=== PATIENT | female | born 2000 | race African-American/Black ===

== ENCOUNTER 2020-06-07 00:47 | Emergency (ER) | payer OTHER, SELFPAY ==
[2020-06-07 00:53] VITALS: BP 150/103; PULSE 119; RESP 20; TEMP 36.2; O2SAT 100
--- NOTE | 2020-06-07 01:20 | ECG_ITS ---
Measurements Intervals [place] Rate: 119 P: 68 SD: 181 QRS: 33 QRSD: 89 T: 44 QT: 423 QTc: 596 Interpretive Statements SINUS TACHYCARDIA INCOMPLETE RIGHT BUNDLE BRANCH BLOCK NONSPECIFIC T-WAVE ABNORMALITY- INFERIOR LEADS ABNORMAL ECG Electronically Signed On 06-07-2020 6:55:30 CDT by Gregg Zeng D.O.
[2020-06-07 01:34] LABS: Basophils Percent Auto 0.5 % (0.2-1.2); Eosinophils Absolute Auto 0.1 K/mm3 (0-0.3); Eosinophils Percent Auto 0.6 % (0-4.4); Hematocrit 34.5 % (37.0-47.0); Hemoglobin 9.6 g/dL (12.0-15.0); Immature Granulocyte Absolute 0.02 K/mm3 (0.00-0.031); Immature Granulocyte Percent A 0.2 % (0-0.5); Lymphocytes Absolute Auto 2.34 K/mm3 (0.9-3.2); Lymphocytes Percent Auto 27.1 % (18.3-44.2); Mean Corpuscular HGB Conc 27.8 g/dl (32-36); Mean Corpuscular Volume 68.5 fl (80-100); Monocytes Absolute Auto 0.6 K/mm3 (0.1-0.6); Monocytes Percent Auto 6.6 % (2.6-8.5); Neutrophils Absolute Auto 5.6 K/mm3 (1.3-6.7); Platelet Count Result 305 k/mm3 (150-375); Red Blood Count 5.04 M/mm3 (4.2-5.4); Red Cell Distribution Width 17.8 % (11.5-14.5); White Blood Count 8.6 K/mm3 (4.5-10.0)
[2020-06-07 01:44] LABS: Lipase 48 U/L (23-300); Magnesium 1.8 mg/dL (1.6-2.3)
[2020-06-07 01:46] LABS: Alanine Aminotransferase 15 U/L (4-35); Albumin Level 4.4 g/dL (3.5-5.1); Alkaline Phosphatase 94 U/L (38-126); Anion Gap 9 mmol/L (8-16); Aspartate Amino Transferase 22 U/L (14-36); Bilirubin,Total < 0.1 mg/dL (0.2-1.3); Blood Urea Nitrogen 12 mg/dL (7-17); Calcium 9.1 mg/dL (8.4-10.2); Carbon Dioxide 28 mmol/L (22-30); Chloride 102 mmol/L (98-107); Estimated CRCL calculation 143 ml/min; Estimated Glomerular Filt Rate > 60; Glucose 108 mg/dL (65-105); Potassium 3.7 mmol/L (3.4-5.0); Sodium 139 mmol/L (137-145)
[2020-06-07 01:47] LABS: D Dimer 0.29 ug/mL (<0.48)
[2020-06-07 01:57] LABS: Troponin I < 0.012 ng/mL (0.000-0.034)
[2020-06-07 01:58] LABS: Hypochromasia 1+ (NORMAL); Microcytosis 2+ (NORMAL); Platelet Estimate Adequate (Adequate)
[2020-06-07] MEDS: SODIUM CHLORIDE 0.9% IV 1,000 ML 999 ML IV CONT (02:10)
[2020-06-07 02:11] VITALS: BP 138/98; PULSE 96; RESP 22; O2SAT 100
--- NOTE | 2020-06-07 03:10 | ED.GENADULT ---
HPI - General Adult General Chief complaint: Arrhythmia/Palpitations Stated complaint: heart palpitations Time Seen by Provider: 06/07/20 01:15 History of Present Illness HPI narrative: Patient is 19-year-old female presents the emergency department with chief complaint of palpitations. Patient reports this evening she started feeling as though her heart was racing multiple short of breath with this patient denies chest pain patient reports that she had no swelling in her legs. Patient states that upon arrival to the emergency department she feels as though she is getting good breath. Patient denies fever denies cough denies runny nose or sore throat. Patient denies prior history of connective tissue disorder denies history of clotting disorder does report that her father has had pulmonary embolisms before in the past. Related Data Home Medications Medication Instructions Recorded Confirmed trazodone 50 mg PO HS 01/15/19 venlafaxine [Effexor XR] 75 mg PO DAILY 01/15/19 Allergies Allergy/AdvReac Type Severity Reaction Status Date / Time No Known Allergies Allergy Verified 01/15/19 15:22 Review of Systems Review of Systems: Narrative: A 10 system review of systems was completed on the patient and is negative except for what is stated in the HPI. Nursing and ancillary documentation was reviewed. [facility] Past Medical History Medical History Tonsillectomy planned Social History Social History Smoking status: Never smoker Exam Narrative: Exam Narrative: GENERAL: Well-appearing, well-nourished, and in no acute distress. HEAD: Normocephalic, atraumatic. EYES: PERRLA and EOMI. ENT: Nares clear, no rhinorrhea or epistaxis. Mucous membranes moist. NECK: Supple. CHEST: Clear to auscultation. No respiratory distress. HEART: Regular rate and rhythm. No murmur heard. Normal peripheral pulses. ABDOMEN: Soft, nontender, nondistended, normal active bowel sounds. EXTREMITIES: Normal range of motion. No edema. SKIN: Warm, dry, no rash. NEURO: No focal deficits. Alert and oriented x3. PSYCH: Normal mood and affect. Course Course Emergency Course: EKG is a sinus tachycardia with a rate of [address] elevation or ST depression Patient received IV hydration in the emergency department. Initial D-dimer was negative and troponin was negative. Vital Signs Vital signs: Vital Signs Temperature 36.2 C L 06/07/20 00:53 Pulse Rate 119 H 06/07/20 00:53 Respiratory Rate 20 06/07/20 00:53 Blood Pressure 150/103 H 06/07/20 00:53 Pulse Oximetry 100 06/07/20 00:53 Temperature 36.2 C L 06/07/20 00:53 Pulse Rate 98 06/07/20 03:16 Respiratory Rate 20 06/07/20 03:16 Blood Pressure 145/88 H 06/07/20 03:16 Pulse Oximetry 99 06/07/20 03:16 Medical Decision Making Vital Signs Vital Signs: Vital Signs Temperature 36.2 C L 06/07/20 00:53 Pulse Rate 119 H 06/07/20 00:53 Respiratory Rate 20 06/07/20 00:53 Blood Pressure 150/103 H 06/07/20 00:53 Pulse Oximetry 100 06/07/20 00:53 Temperature 36.2 C L 06/07/20 00:53 Pulse Rate 98 06/07/20 03:16 Respiratory Rate 20 06/07/20 03:16 Blood Pressure 145/88 H 06/07/20 03:16 Pulse Oximetry 99 06/07/20 03:16 Lab Data Result diagrams: 06/07/20 01:27 06/07/20 01:27 Labs: Lab Results 06/07/20 06/07/20 06/07/20 Range/Units 01:27 01:27 01:27 WBC 8.6 (4.5-10.0) K/mm3 RBC 5.04 (4.2-5.4) M/mm3 Hgb 9.6 L (12.0-15.0) g/dL Hct 34.5 L (37.0-47.0) % MCV 68.5 L (80-100) fl MCH 19.0 L (26-34) pg MCHC 27.8 L (32-36) g/dl RDW 17.8 H (11.5-14.5) % Plt Count 305 (150-375) k/mm3 MPV TNP Immature Gran % (Auto) 0.2 (0-0.5) % Neut % (Auto) 65.0 (45.5-73.1) % Lymph % (Auto) 27.1 (18.3-44.2) % [place] % (Auto) 6.6 (2.6-8.
[2020-06-07 03:13] LABS: Add Urine Microscopic? NO; Appearance Urine Clear (Clear); Bacteria Urine Trace /hpf; Bilirubin Urine Negative (Negative); Blood Urine Negative (Negative); Color Urine Yellow (Yellow); Glucose Urine UA Negative (Negative); Ketones Urine Negative (Negative); Leukocyte Esterase Ur Negative LEU/UL (Negative); Mucus Urine Rare /lpf; Nitrate Urine Negative (Negative); Protein Urine Negative (Negative); RBC Urine 0-2 /hpf (0-2); Specific Grav Ur 1.012 (1.001-1.035); Squamous Epithelial Cell Urine Occasional /hpf (Few); Urobilinogen Urine Negative mg/dL (<2.0); WBC Urine 0-3 /hpf
[2020-06-07 03:16] VITALS: BP 145/88; PULSE 98; RESP 20; O2SAT 99
[2020-06-07 03:44] VITALS: BP 157/91; PULSE 102; RESP 20; O2SAT 99
== END 2020-06-07 03:59 | disposition home or self-care (01) ==
PROVIDERS: Emergency Provider Emergency Medicine
DX: R00.2 Palpitations (principal); R00.0 Tachycardia, unspecified; I45.10 Unspecified right bundle-branch block
CPT/HCPCS: 36415; 80053; 81003; 81025; 83690; 83735; 84484; 85025; 85055; 85380; 93005; 96360; 96361; 99284; J7030

== ENCOUNTER 2020-06-20 13:46 | Outpatient (CLI) | payer OTHER, SELFPAY ==
--- NOTE | 2020-06-20 14:08 | ECHO_ITS ---
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 Summary 1. Complete two-dimensional, color flow and Doppler transthoracic echocardiogram is performed. 2. Left ventricular chamber dimension is normal. 3. Left ventricular systolic function is normal, estimated at 60-65%. 4. The left ventricular diastolic function is normal. 5. E/e' 8 is minimally elevated. 6. There is trace mitral valve regurgitation. 7. No pulmonary hypertension, estimated pulmonary arterial systolic pressure is 18 mmHg. Left Ventricle E/e' 8 is minimally elevated. Left ventricular chamber dimension is normal. Left ventricular systolic function is normal, estimated at 60-65%. The left ventricular diastolic function is normal. Right Ventricle Right ventricular chamber dimension is normal. Right ventricular systolic function is normal. Left Atria Left atrial chamber dimension is normal. Right Atria Right atrial chamber dimension is normal. Aortic Valve The aortic valve is trileaflet. There is no aortic valve stenosis. There is no aortic valve regurgitation. Pulmonic Valve There is no pulmonic regurgitation. Mitral Valve There is no mitral valve stenosis. There is trace mitral valve regurgitation. Tricuspid Valve There is no tricuspid valve regurgitation. No pulmonary hypertension, estimated pulmonary arterial systolic pressure is 18 mmHg. Pericardium/Pleural There is no pericardial effusion. Inferior Vena Cava Normal inferior vena cava with >50% collapse upon inspiration consistent with normal right atrial pressure, 5 mmHg. Aorta The aortic root size at the sinus of Valsalva is normal. Left Ventricular Outflow Tract Name Value Normal LVOT 2D LVOT Diameter 2.3 cm LVOT Doppler LVOT Peak Gradient 5 mmHg LVOT Mean Gradient 3 mmHg LVOT VTI 19 cm LVOT VTI/AV VTI Ratio 1.0 LVOT Stroke Volume 75 ml LVOT CO 19.1 l/min LVOT CI 6.4 l/min/m2 Pulmonic Valve Name Value Normal PV Doppler PV Peak Gradient 4 mmHg Mitral Valve
[2020-06-20 14:34] LABS: Basophils Percent Auto 0.5 % (0.2-1.2); Eosinophils Percent Auto 0.5 % (0-4.4); Hematocrit 33.6 % (37.0-47.0); Hemoglobin 9.6 g/dL (12.0-15.0); Immature Granulocyte Absolute 0.02 K/mm3 (0.00-0.031); Immature Granulocyte Percent A 0.2 % (0-0.5); Immature Platelet Fraction Pct 14.3 % (0.9-11.2); Lymphocytes Percent Auto 22.2 % (18.3-44.2); Mean Corpuscular HGB Conc 28.6 g/dl (32-36); Mean Corpuscular Hemoglobin 19.2 pg (26-34); Mean Corpuscular Volume 67.1 fl (80-100); Monocytes Absolute Auto 0.6 K/mm3 (0.1-0.6); Monocytes Percent Auto 7.9 % (2.6-8.5); Neutrophils Absolute Auto 5.6 K/mm3 (1.3-6.7); Neutrophils Percent Auto 68.7 % (45.5-73.1); Platelet Count Result 272 k/mm3 (150-375); Red Blood Count 5.01 M/mm3 (4.2-5.4); Red Cell Distribution Width 17.7 % (11.5-14.5); White Blood Count 8.1 K/mm3 (4.5-10.0)
[2020-06-20 15:02] LABS: Anisocytosis 2+ (NORMAL); Hypochromasia 1+ (NORMAL); Platelet Estimate Adequate (Adequate)
[2020-06-20 17:44] LABS: Folic Acid 13.1 ng/mL (2.76->20)
--- NOTE | 2020-06-23 12:25 | WPDHOLTEREM ---
Holter/Event Monitor Holter/Event Monitor Date of procedure: 06/20/20 Procedure Type: 48 hour holter monitor Indications: Palpitations Conclusion: 1. 48 hour holter monitor on 06/20/20. 2. Underlying rhythm is sinus rhythm. HR range 67-182 bpm; average HR 101 bpm. 3. There are 5 premature supraventricular complexes and 1 supraventricular couplet. No supraventricular tachycardia. 4. There are 107 premature ventricular complexes and 3 ventricular couplets. No ventricular tachycardia. 5. No sinoatrial or atrioventricular blocks. No significant pauses greater than 2 seconds. 6. Patient reports symptoms of palpitations, chest pain which demonstrate sinus rhythm, HR range 90-128 bpm.
== END 2020-06-20 13:47 | disposition home or self-care (01) ==
PROVIDERS: PCP Internal Medicine; Visit Provider Nurse Practitioner
DX: D64.9 Anemia, unspecified (principal); I45.10 Unspecified right bundle-branch block; R00.2 Palpitations
CPT/HCPCS: 36415; 82607; 82728; 82746; 84443; 85025; 85055; 93225; 93226; 93306

== ENCOUNTER 2021-10-02 14:56 | Outpatient (CLI) | payer OTHER, SELFPAY ==
[2021-10-02 19:39] LABS: Alanine Aminotransferase 19 U/L (6-35); Alkaline Phosphatase 86 U/L (38-126); Anion Gap 8 mmol/L (8-16); Aspartate Amino Transferase 99 U/L (14-36); Bilirubin,Total 0.3 mg/dL (0.2-1.3); Blood Urea Nitrogen 17 mg/dL (7-17); Calcium 8.7 mg/dL (8.4-10.2); Carbon Dioxide 29 mmol/L (22-30); Chloride 103 mmol/L (98-107); Estimated Glomerular Filt Rate > 60; Glucose 87 mg/dL (65-110); Potassium 3.9 mmol/L (3.4-5.0); Sodium 140 mmol/L (137-145)
[2021-10-02 19:42] LABS: Basophils Percent Auto 0.4 % (0.2-1.2); Eosinophils Absolute Auto 0.1 K/mm3 (0-0.3); Eosinophils Percent Auto 1.2 % (0-4.4); Hematocrit 37.6 % (37.0-47.0); Hemoglobin 11.1 g/dL (12.0-15.0); Immature Granulocyte Absolute 0.01 K/mm3 (0.00-0.031); Immature Granulocyte Percent A 0.1 % (0-0.5); Immature Platelet Fraction Pct 18.3 % (0.9-11.2); Lymphocytes Absolute Auto 2.33 K/mm3 (0.9-3.2); Lymphocytes Percent Auto 32.2 % (18.3-44.2); Mean Corpuscular HGB Conc 29.5 g/dl (32-36); Mean Corpuscular Hemoglobin 22.8 pg (26-34); Mean Corpuscular Volume 77.4 fl (80-100); Monocytes Absolute Auto 0.4 K/mm3 (0.1-0.6); Monocytes Percent Auto 5.7 % (2.6-8.5); Neutrophils Absolute Auto 4.4 K/mm3 (1.3-6.7); Neutrophils Percent Auto 60.4 % (45.5-73.1); Platelet Count Result 189 k/mm3 (150-375); Red Blood Count 4.86 M/mm3 (4.2-5.4); Red Cell Distribution Width 16.8 % (11.5-14.5); White Blood Count 7.2 K/mm3 (4.5-10.0)
[2021-10-02 19:58] LABS: Iron 24 ug/dL (37-170)
[2021-10-02 20:13] LABS: Percent Iron Saturation 6 % (20-50)
== END 2021-10-02 14:57 | disposition home or self-care (01) ==
LOC: ANHGOSHLAB 14:57
PROVIDERS: PCP Internal Medicine; Visit Provider Clinical Nurse Specialist
DX: D64.9 Anemia, unspecified (principal); R00.2 Palpitations
CPT/HCPCS: 36415; 80053; 82728; 83540; 83550; 84443; 85025; 85055